=== PATIENT | female | born 1975 | race Caucasian/White ===

== ENCOUNTER 2017-06-15 02:49 | Emergency (ER) | payer MEDICAID | END 2017-06-15 03:55 | disposition left against medical advice (07) | LOC: D.ER 02:49 | DX: S61.204A Unspecified open wound of right ring finger without damage to nail, initial encounter (principal); R11.0 Nausea ==

== ENCOUNTER 2017-09-10 07:25 | Emergency (ER) | payer MEDICAID ==
[2017-09-10 08:20] LABS: APPEARANCE CLEAR (CLEAR); COLOR ORANGE (YELLOW); SPECIFIC GRAVITY 1.005 (1.005-1.020)
[2017-09-10 08:21] LABS: BACTERIA FEW /hpf (NONE SEEN); EPITHELIAL CELLS 0-5 /hpf (0-5); RED CELLS - URINE 0-5 /hpf (0-5); WHITE CELLS - URINE 0-5 /hpf (0-5); YEAST <1+ /hpf (NONE SEEN)
== END 2017-09-10 09:26 | disposition home or self-care (01) ==
LOC: D.ER 07:25
PROVIDERS: Emergency Medicine
DX: J11.1 Influenza due to unidentified influenza virus with other respiratory manifestations (principal); F17.200 Nicotine dependence, unspecified, uncomplicated